=== PATIENT | female | born 1965 | race Caucasian/White ===

== ENCOUNTER 2018-12-04 10:27 | Day surgery (SDC) | payer OTHER ==
[~2018-12-04] VITALS: Ht 157.5 cm; Wt 56.7 kg
[~2018-12-04 10:27] MED LIST: ASPI81TA52 PO; ATOR20TA38 PO; CHOL2000 PO; CITA20TA11 PO; HYDR-762 PO; LISI-471 PO; METF500T24 PO; ONDA4TAB35 PO
[2018-12-04] MEDS ORDERED: insulin (11:04)
[2018-12-04] MEDS ORDERED: benazepril (11:04)
[2018-12-04 11:06] VITALS: Ht 157.5 cm; Wt 56.7 kg
[2018-12-04 11:19] VITALS: BP 120/84; PULSE 63; RESP 18
[2018-12-04] MEDS ORDERED: FENTAnyl 50 MCG/ML VIAL ONE (11:59)
[2018-12-04] MEDS ORDERED: MIDAZOLAM 1 MG/ML 2 ML INJ ONE ×2 (11:59)
[2018-12-04 12:23] VITALS: BP 137/80; PULSE 86; RESP 18
== END 2018-12-04 15:15 | disposition home or self-care (01) ==
LOC: GIL 10:27
PROVIDERS: ATTEND Internal Medicine Gastroenterology
DX: Z12.11 Encounter for screening for malignant neoplasm of colon (principal); D12.5 Benign neoplasm of sigmoid colon; K64.8 Other hemorrhoids; E11.9 Type 2 diabetes mellitus without complications; I10 Essential (primary) hypertension
CPT/HCPCS: 45385; 82962; 84703; 88305; J2250; J3010; Z7610